=== PATIENT | female | born 1955 | race Caucasian/White ===

== ENCOUNTER → 2016-11-14 | Outpatient (CLI) | payer BC ==
[~2016-11-14] MED LIST: AMBIEN 5MG TABLE5 MG PO; PERCOCET 325 MG1 TA2 PO; ZOCOR 10MG10 MG PO
== END ==
LOC: MHCPAIN 08:09
DX: G89.29 Other chronic pain (principal); M47.812 Spondylosis without myelopathy or radiculopathy, cervical region; M54.81 Occipital neuralgia; R51 Headache
CPT/HCPCS: G0463

== ENCOUNTER → 2016-12-17 | Outpatient (CLI) | payer BC | LOC: MHCPAIN 08:01 | DX: G89.29 Other chronic pain (principal); M50.90 Cervical disc disorder, unspecified, unspecified cervical region; M54.12 Radiculopathy, cervical region; M54.81 Occipital neuralgia; R51 Headache | CPT/HCPCS: G0463 ==

== ENCOUNTER → 2016-12-27 | Outpatient (CLI) | payer BC | LOC: MHCPAIN 07:42 | DX: M50.11 Cervical disc disorder with radiculopathy, high cervical region (principal); M48.02 Spinal stenosis, cervical region | CPT/HCPCS: J1100; Q9967 ==

== ENCOUNTER → 2017-01-23 | Outpatient (CLI) | payer BC | LOC: MHCPAIN 07:47 | DX: G89.29 Other chronic pain (principal); M50.11 Cervical disc disorder with radiculopathy, high cervical region; M54.81 Occipital neuralgia; R51 Headache | CPT/HCPCS: G0463 ==

== ENCOUNTER → 2017-04-23 | Outpatient (CLI) | payer BC | LOC: MHCPAIN 07:47 | DX: G89.29 Other chronic pain (principal); M50.122 Cervical disc disorder at C5-C6 level with radiculopathy; R51 Headache | CPT/HCPCS: G0463 ==

== ENCOUNTER → 2017-05-09 | Outpatient (CLI) | payer BC | LOC: MHCPAIN 09:02 | DX: M50.31 Other cervical disc degeneration, high cervical region (principal); R51 Headache; Z98.1 Arthrodesis status ==

== ENCOUNTER → 2017-05-15 | Outpatient (CLI) | payer BC | LOC: MHCPAIN 08:26 | DX: G89.29 Other chronic pain (principal); M50.122 Cervical disc disorder at C5-C6 level with radiculopathy; M54.81 Occipital neuralgia; R51 Headache | CPT/HCPCS: G0463 ==

== ENCOUNTER → 2017-06-03 | Outpatient (CLI) | payer BC | LOC: MC.RAD 07:28 | DX: Z12.31 Encounter for screening mammogram for malignant neoplasm of breast (principal) ==

== ENCOUNTER → 2017-06-20 | Outpatient (CLI) | payer BC | LOC: MHCPAIN 07:47 | DX: M50.321 Other cervical disc degeneration at C4-C5 level (principal) ==

== ENCOUNTER → 2017-06-26 | Outpatient (CLI) | payer BC | LOC: MHCPAIN 08:13 | DX: G89.29 Other chronic pain (principal); M50.11 Cervical disc disorder with radiculopathy, high cervical region; M54.81 Occipital neuralgia; R51 Headache | CPT/HCPCS: G0463 ==

== ENCOUNTER → 2017-07-25 | Outpatient (CLI) | payer BC | LOC: MHCPAIN 08:17 | DX: M50.31 Other cervical disc degeneration, high cervical region (principal) | CPT/HCPCS: J1100; J2250; J3010 ==

== ENCOUNTER → 2017-09-24 | Outpatient (CLI) | payer BC | LOC: MHCPAIN 08:54 | DX: G89.29 Other chronic pain (principal); M50.90 Cervical disc disorder, unspecified, unspecified cervical region; M54.12 Radiculopathy, cervical region; M54.81 Occipital neuralgia; R51 Headache | CPT/HCPCS: G0463 ==

== ENCOUNTER → 2018-03-25 | Outpatient (CLI) | payer BC | LOC: MHCPAIN 15:35 | DX: G89.29 Other chronic pain (principal); M50.90 Cervical disc disorder, unspecified, unspecified cervical region; M54.12 Radiculopathy, cervical region; M54.81 Occipital neuralgia; R51 Headache | CPT/HCPCS: G0463 ==

== ENCOUNTER 2018-05-06 16:15 | Outpatient (RCR) | payer BC | END 2018-07-10 | disposition home or self-care (01) | LOC: MKS.ESL.PT | DX: M50.10 Cervical disc disorder with radiculopathy, unspecified cervical region (principal); R51 Headache; M54.81 Occipital neuralgia; R68.84 Jaw pain; G89.29 Other chronic pain; Z79.899 Other long term (current) drug therapy ==

== ENCOUNTER → 2018-06-23 | Outpatient (CLI) | payer BC | LOC: MC.RAD 14:16 | DX: Z12.31 Encounter for screening mammogram for malignant neoplasm of breast (principal) ==

== ENCOUNTER → 2019-10-28 | Outpatient (CLI) | payer BC | LOC: MC.RAD 14:24 | DX: Z12.31 Encounter for screening mammogram for malignant neoplasm of breast (principal) ==

== ENCOUNTER → 2020-06-24 | Outpatient (CLI) | payer BC | LOC: COL.RAD 12:07 | DX: H53.432 Sector or arcuate defects, left eye (principal) | CPT/HCPCS: A9585 ==

== ENCOUNTER → 2020-11-04 | Outpatient (CLI) | payer BC | LOC: MC.RAD 10:08 | DX: Z12.31 Encounter for screening mammogram for malignant neoplasm of breast (principal) ==

== ENCOUNTER → 2021-11-06 | Outpatient (CLI) | payer BC | LOC: MC.RAD 07:54 | DX: Z12.31 Encounter for screening mammogram for malignant neoplasm of breast (principal) ==